=== PATIENT | male | born 1955 | race Caucasian/White ===

== ENCOUNTER 2020-02-12 05:50 | Day surgery (SDC) | payer OTHER, SELFPAY ==
[2020-02-07 13:00] LABS: BASOPHILS # (AUTO) 0.1 K/uL (0.00-0.22); EOSINOPHILS # (AUTO) 0.2 K/uL (0-0.4); EOSINOPHILS % (AUTO) 2.5 % (0.0-4.0); HEMATOCRIT 43.3 % (36-52); HEMOGLOBIN 14.5 g/dL (12.0-18.0); LYMPHOCYTES # (AUTO) 2.7 K/uL (2.0-11.5); LYMPHOCYTES % (AUTO) 36.8 % (20.5-51.1); MEAN CORPUSCULAR HEMOGLOBIN 32 pg (27-31); MEAN CORPUSCULAR HGB CONC 34 g/dL (33-37); MONOCYTES # (AUTO) 0.6 K/uL (0.8-1.0); MONOCYTES % (AUTO) 8.7 % (1.7-9.3); NEUTROPHILS # (AUTO) 3.8 K/uL (1.8-7.7); PLATELET COUNT (AUTO) 193 K/uL (140-450); RED BLOOD CELL COUNT(AUTO) 4.61 MIL/uL (4.20-6.10); RED CELL DISTRIBUTION WIDTH 13.9 % (11.6-13.7); WHITE BLOOD COUNT (AUTO) 7.5 K/uL (4.8-10.8)
[2020-02-07 13:14] LABS: ALBUMIN 3.7 g/dL (3.4-5.0); ANION GAP 12.9 (8-16); CARBON DIOXIDE 27.4 mmol/L (21-32); CREATININE 1.4 mg/dL (0.6-1.3); POTASSIUM 4.3 mmol/L (3.5-5.1); TOTAL BILIRUBIN 0.9 mg/dL (0.0-1.0)
[~2020-02-12] VITALS: Ht 165.1 cm; Wt 80.7 kg
[2020-02-12] MEDS ORDERED: NACL 0.9% 1,000 ML IV SCH (07:28)
[2020-02-12] MEDS ORDERED: MEPERIDINE 25 MG/ML SYR IVP PRN (07:30)
[2020-02-12] MEDS ORDERED: HYDROmorphone 1 MG/ML AMP IVP PRN (07:30)
[2020-02-12] MEDS ORDERED: ONDANSETRON 4 MG/2 ML VIAL IVP PRN (07:30)
[2020-02-12] MEDS ORDERED: BLOOD GLUCOSE MONITORING 1 DEV DEV FS SCH (07:30)
[2020-02-12] MEDS ORDERED: diphenhydrAMINE 50 MG/ML VIAL IVP PRN (07:30)
[2020-02-12] MEDS ORDERED: ALBUTEROL 0.083% 2.5 MG/3 ML NEBU INH ONE ×2 (07:34→07:36)
[2020-02-12] MEDS ORDERED: IPRATROPIUM 0.02% 0.5 MG/2.5 ML NEBU INH ONE (07:36)
[2020-02-12] MEDS ORDERED: ETOMIDATE 20 MG/10 ML VIAL IVP ONE (07:45)
[2020-02-12] MEDS ORDERED: ONDANSETRON 4 MG/2 ML VIAL ONE (07:45)
[2020-02-12] MEDS ORDERED: LIDOCAINE 2% 100 MG/5 ML SYR IVP ONE (07:45)
[2020-02-12] MEDS ORDERED: SUCCINYLCHOLINE CHLORIDE 200 MG/10 ML VIAL IVP ONE (07:45)
[2020-02-12] MEDS ORDERED: fentaNYL citrate 0.05 MG/ML VIAL ONE (07:45)
[2020-02-12] MEDS ORDERED: ROCURONIUM 50 MG/5 ML VIAL IV ONE (07:45)
[2020-02-12] MEDS ORDERED: SEVOFLURANE 250 ML BTL INH ONE (07:45)
[2020-02-12] MEDS ORDERED: NEOSTIGMINE 1:1000 10 MG/10 ML VIAL ONE (07:45)
[2020-02-12] MEDS ORDERED: PROPOFOL 200 MG/20 ML VIAL IV ONE (07:45)
[2020-02-12] MEDS ORDERED: GLYCOPYRROLATE 0.2 MG/ML VIAL ONE (07:45)
[2020-02-12] MEDS ORDERED: BUPIVACAINE-MPF 0.25% 30 ML VIAL INJ ONE (08:43)
[2020-02-12] MEDS: HYDROmorphone PFS 2 MG/ML SYR ONE ×2 (09:24→09:34)
[2020-02-12] MEDS ORDERED: LORazepam 2 MG/ML VIAL IM/IVP PRN (09:30)
[2020-02-12] MEDS ORDERED: KETOROLAC 30 MG/ML VIAL IM SCH (10:00)
== END 2020-02-12 10:55 | disposition home or self-care (01) ==
LOC: MDS 05:50 → MMU 05:53 → MDS 10:55
PROVIDERS: ATTEND Urology
DX: R33.9 Retention of urine, unspecified (principal); I10 Essential (primary) hypertension; K22.70 Barrett's esophagus without dysplasia; F20.9 Schizophrenia, unspecified; E11.9 Type 2 diabetes mellitus without complications; E78.5 Hyperlipidemia, unspecified; Z98.890 Other specified postprocedural states; Z20.828 Contact with and (suspected) exposure to other viral communicable diseases; Z79.01 Long term (current) use of anticoagulants; Z79.899 Other long term (current) drug therapy
CPT/HCPCS: 36415; 51040; 71045; 80053; 85025; 93005; 94640; J0330; J0690; J1170; J2001; J2405; J2704; J2710; J3010; J3490; J7030; J7060; J7613; J7644; U0003

== ENCOUNTER 2020-03-08 08:31 | Emergency (ER) | payer OTHER ==
[~2020-03-08] VITALS: Ht 162.6 cm; Wt 70.8 kg
[2020-03-08 08:41] VITALS: BP 145/109
--- NOTE | 2020-03-08 08:50 | NUR ---
64 y/o male presents to the ED with removed suprapubic catheter. Pt states he was having burning with urination and "pulled" on the catheter and it ripped. 10/10 constant pain. Pt guarding abd. Pt poor historian, unable to recall medical history.
--- NOTE | 2020-03-08 08:55 | NUR ---
Dr Jacome at bedside examining pt
[2020-03-08] MEDS ORDERED: HYDROcodone/APAP 5/325 MG 1 TAB TAB PO STA (09:02)
[2020-03-08 09:27] VITALS: BP 145/109
--- NOTE | 2020-03-08 09:28 | NUR ---
Patient discharged with v/s stable. Written and verbal after care instructions given and explained. Patient verbalized understanding. Ambulatory with steady gait. All questions addressed prior to discharge. Advised to follow up with PMD AND UROLOGIST.
== END 2020-03-08 09:28 | disposition home or self-care (01) ==
LOC: MED 08:31
DX: T83.018A Breakdown (mechanical) of other urinary catheter, initial encounter (principal); Z98.890 Other specified postprocedural states; Y65.8 Other specified misadventures during surgical and medical care; Y92.89 Other specified places as the place of occurrence of the external cause
CPT/HCPCS: 99283